=== PATIENT | female | born 1965 | race Caucasian/White ===

== ENCOUNTER 2016-09-07 12:38 | Observation (INO) ==
[2016-09-07 13:04] LABS: MANUAL DIFF NEEDED? NO
[2016-09-07] MEDS ORDERED: LOPRESSOR IV ONE (13:09)
[2016-09-07 13:11] LABS: BASO% 0.2 % (0.0-0.8); EOS# 0.12 X1000 (0.0-0.7); EOS% 1.4 % (0.0-10.0); HEMATOCRIT 41.5 % (37.0-47.0); HEMOGLOBIN 13.7 g/dL (12.0-16.0); IMM GRAN# 0.01 X1000 (0.0-0.04); IMM GRAN% 0.1 % (0.0-0.5); LYMPH# 2.07 X1000 (1.2-3.4); LYMPH% 24.6 % (20.5-51.1); MCH 31.5 PG (27-31); MCV 95.4 FL (81-99); MONO# 0.53 X1000 (0.11-0.59); MONO% 6.3 % (1.7-9.3); MPV 9.4 FL (7.4-10.4); NEUT% 67.4 % (42.2-75.2); PLT 353 X1000 (130-400); RBC 4.35 XMIL (4.2-5.4)
[2016-09-07 13:19] LABS: BE 3.2 mmoll (-3.0-3.0); BLOOD TYPE ARTERIAL; DRAW SITE L RADIAL; O2(CT) 16.8 mL/dL (15.0-23.0); PCO2(98.6) 42 mmHg (35-45); PO2(98.6) 77 mmHg (60-100); SAMPLE BLOOD; SAO2 96.6 % (95.0-100.0); THB 13.4 g/dL (11.5-17.4); pH(98.6) 7.43 (7.35-7.45)
[2016-09-07 13:21] LABS: INR 0.86 (0.86-1.15)
[2016-09-07 13:22] LABS: PTT PL 29.4 Seconds (22.6-43.9)
[2016-09-07 13:37] LABS: AGAP 13; ALBUMIN 4.3 g/dL (3.5-5.0); ALKALINE PHOSPHATASE 98 U/L (32-104); BUN 14 mg/dL (8-22); CALCIUM 9.7 mg/dL (8.8-10.2); CHLORIDE 98 mmol/L (98-107); CK PROFILE 37 U/L (24-173); COSMO 287; GOT 16 U/L (10-30); GPT 7 U/L (10-36); POTASSIUM 4.5 mmol/L (3.5-5.1); SODIUM 137 mmol/L (136-145); TCO2 26 mmol/L (25-35); TOTAL BILIRUBIN < 0.15 mg/dL (0.20-1.00); TOTAL PROTEIN 7.9 g/dL (6.3-8.3)
[2016-09-07 14:10] LABS: UR AMPHETAMINES QUAL NONE DETECTED (NONE DETECT); UR BARBITUATES QUAL NONE DETECTED (NONE DETECT); UR BENZODIAZEPIN QUAL NONE DETECTED (NONE DETECT); UR CANNABINOIDS QUAL PRESUMPTIVE POSITIVE (NONE DETECT); UR COCAINE QUAL NONE DETECTED (NONE DETECT); UR MDMA QUAL NONE DETECTED (NONE DETECT); UR METHADONE QUAL NONE DETECTED (NONE DETECT); UR METHAMPHETAMINE QUAL NONE DETECTED (NONE DETECT); UR OPIATES QUAL NONE DETECTED (NONE DETECT); UR OXYCODONE QUAL PRESUMPTIVE POSITIVE (NONE DETECT); UR PCP QUAL NONE DETECTED (NONE DETECT); UR TCA QUAL NONE DETECTED (NONE DETECT)
[2016-09-07 14:15] LABS: BILIRUBIN URINE NEGATIVE (NEGATIVE); BLOOD URINE NEGATIVE (NEGATIVE); CLARITY CLEAR (CLEAR); COLOR YELLOW; LEUKOCYTES URINE TRACE (NEGATIVE); NITRITE URINE NEGATIVE (NEGATIVE); PH URINE 6.5; PROTEIN URINE TRACE mg/dL (NEGATIVE); SP GRAVITY URINE 1.015; UROBILINOGEN URINE NORMAL
[2016-09-07 14:16] LABS: URINE CULTURE PL NEEDED? YES; URINE EPITHELIAL CELLS >10 /HPF (<10); URINE RBC <10 /HPF (<10); URINE SOURCE CLEAN CATCH
[2016-09-07] MEDS ORDERED: ROCEPHIN 1 GM/NS 1 GM/50 ML IVPB IV ONE (14:18)
--- NOTE | 2016-09-07 15:11 | EKG Report ---
Test Performed on : 09/07/2016 12:57:50 PM Test Reason : AMS Blood Pressure : / mmHG Vent. Rate : 080 BPM Atrial Rate : 080 BPM P-R Int : 134 ms QRS Dur : 088 ms QT Int : 404 ms P-R-T Axes : 067 034 058 degrees QTc Int : 465 ms Normal sinus rhythm. Normal ECG When compared with ECG of 25-SEP-2014 16:06, T wave inversion no longer evident in Anterior leads Unconfirmed Result
[2016-09-07 15:25] LABS: MODALITY ROOM AIR
[2016-09-07 15:26] LABS: ALLEN TEST YES
--- NOTE | 2016-09-07 16:04 | Diag Imaging Result Document ---
PROCEDURE NAME: CHEST-1 VIEW - 09/07/2016 CHEST, SINGLE VIEW COMPARISON: 09/25/14. FINDINGS: The lungs are well expanded. The heart is not enlarged. The vessels are not distended. No pneumonia. No pleural effusions identified. IMPRESSION: Negative chest.
--- NOTE | 2016-09-07 16:22 | Diag Imaging Result Document ---
PROCEDURE NAME: HEAD W/O CONTRAST - 09/07/2016 CT BRAIN WITHOUT CONTRAST. DOSE REDUCTION PROTOCOL. COMPARISON: 06/06/2016. FINDINGS: No parenchymal hemorrhage. No epidural or subdural hematoma. No subarachnoid hemorrhage. No mass identified on this noncontrasted exam. No hydrocephalus. No sinus opacification. IMPRESSION: No hemorrhage. Negative brain CT without contrast. A preliminary report was given at 1:39 p.m..
--- NOTE | 2016-09-07 17:11 | Diag Imaging Result Document ---
PROCEDURE NAME: NECK W/CONTRAST - 09/07/2016 CT NECK WITH INTRAVENOUS CONTRAST: FINDINGS: Dose reduction protocol. No sinus opacification. No air-fluid levels. The parotid glands are symmetrical and the submandibular glands are symmetrical. No precervical soft tissue swelling. There are degenerative changes in the mid and lower cervical spine. Normal larynx and thyroid. There are small lymph nodes scattered in the neck. No mass or abscess. The lung apices are clear. The airway is distended. The epiglottis is not enlarged. IMPRESSION: No mass or abscess. A preliminary report was given at 2:53 PM.
[2016-09-07] MEDS ORDERED: HUMALOG MIX ONE (17:37)
[2016-09-07] MEDS: PRINIVIL PO SCH (18:38)
[2016-09-07] MEDS: NEURONTIN PO SCH (20:20)
[2016-09-07] MEDS: HUMULIN R (PARKWAY) SUBQ SCH (20:25)
[2016-09-07] MEDS ORDERED: ZOLOFT PO SCH (21:00)
[2016-09-07] MEDS ORDERED: AMBIEN PO PRN (21:42)
[2016-09-07] MEDS: NORCO-5 PO PRN (22:01)
[2016-09-08] MEDS: NORCO-5 PO PRN (03:35)
[2016-09-08] MEDS: HUMULIN R (PARKWAY) SUBQ SCH ×2 (06:13→11:54)
[2016-09-08 06:45] LABS: HEMOGLOBIN A1C 7.3 % (4.8-6.0)
[2016-09-08 06:50] LABS: HEMATOCRIT 37.8 % (37.0-47.0); HEMOGLOBIN 12.1 g/dL (12.0-16.0); MCH 30.7 PG (27-31); MCV 95.9 FL (81-99); MPV 9.5 FL (7.4-10.4); RBC 3.94 XMIL (4.2-5.4)
[2016-09-08] MEDS ORDERED: INSULIN LISPRO PROTAMIN SQ SCH (07:00)
[2016-09-08] MEDS ORDERED: PRILOSEC PO SCH (07:00)
[2016-09-08] MEDS ORDERED: LISPRO SQ SCH (07:00)
[2016-09-08 07:37] LABS: CALCIUM 9.3 mg/dL (8.8-10.2); POTASSIUM 4.3 mmol/L (3.5-5.1)
[2016-09-08] MEDS ORDERED: GLUCOPHAGE PO SCH (08:00)
[2016-09-08] MEDS ORDERED: JANUVIA PO SCH (08:00)
[2016-09-08] MEDS: NEURONTIN PO SCH (08:41)
[2016-09-08] MEDS: PRINIVIL PO SCH (08:42)
[2016-09-08 08:52] VITALS: BP 140/72
[2016-09-08] MEDS ORDERED: SYNTHROID PO SCH (09:00)
[2016-09-08] MEDS ORDERED: LANTUS INSULIN (PARKWAY) SUBQ SCH (09:00)
[2016-09-08] MEDS ORDERED: SEROQUEL PO SCH (09:00)
--- NOTE | 2016-09-08 11:15 | Diag Imaging Result Document ---
PROCEDURE NAME: MRI BRAIN W W/O CONTRAST - 09/08/2016 MRI BRAIN WITHOUT AND WITH CONTRAST: TECHNIQUE: Images are obtained prior to and following Omniscan administration. Exam is compared with a without-contrast MRI brain of 01/22/2014. FINDINGS: There is no evidence of hemorrhage, mass effect, midline shift, or hydrocephalus. There is mild ventricular asymmetry which is stable and compatible with normal variation. There are no substantial signal abnormalities identified. The diffusion-weighted images show no areas of restricted diffusion (no evidence of acute infarct). There is no abnormal enhancement seen. IMPRESSION: Negative exam. There are no substantial signal abnormalities or abnormal enhancement seen.
--- NOTE | 2016-09-08 21:18 | DISCHARGE SUMMARY ---
ADMISSION DATE: 09/07/2016 DISCHARGE DATE: 09/08/2016 DIAGNOSES: 1. Altered mental status in a patient with 2. Diabetes mellitus, uncontrolled. 3. Hypothyroid. 4. Bipolar disorder. 5. Tobacco use and abuse. DIAGNOSTICS: 09/07/2016 chest x-ray revealed a negative chest. Lungs are well expanded. Heart is not enlarged. Vessels are not distended. No pneumonia. 09/07/2016 CT of the head revealed no hemorrhage. Negative brain CT without contrast. 09/07/2016 CT of the neck revealed no mass or abscess. Parathyroid glands are symmetrical. Submandibular glands are symmetrical. No precervical soft tissue swelling. Normal larynx and thyroid. No mass or abscess. 09/08/2016 brain MRI revealed a negative examination. There are no substantial signal abnormalities or abnormal enhancement seen. HOSPITAL COURSE: Ms. Huizar presented to the emergency room from her primary care physician's office for altered mental status and uncontrolled diabetes mellitus having blood sugars over the 300s. Report from her PCP, Dr. Jay Martinez was that the patient showed up at his office with a friend. She was slow to answer questions, at times having pauses for quite some time. The friend gave a report of the patient having a questionable pituitary tumor diagnosed in the past. Therefore, the patient was sent per EMS to the emergency room for further evaluation and treatment. On arrival to the emergency room the patient was awake, alert, cooperative. She was slow to respond to some questions but this was not consistent. She had no complaints. Blood sugars were noted to be 300-334. She was noted to have less than 10 microscopic red blood cells, 10-20 microscopic white blood cells, and 3+ bacteria so urine was sent for culture which revealed no growth. She was given Rocephin in the emergency room prophylactically while cultures were pending. She did not complain of any urinary symptoms. She had no white count. She was afebrile. CT scan of the head and neck, and MRI of the brain were all found to have no acute processes. Blood sugars once she arrived in the emergency room ranged between 60 and 150. She had no complaints, no altered mental status. She was very cooperative. She had no difficulty carrying on conversations or answering questions with a nonfocal neurologic examination. Of note, urine drug screen was performed which was positive for oxycodone as well as cannabinoids. She did state that she smoked marijuana at intervals. DISCHARGE PHYSICAL EXAMINATION: Cardiovascular: Regular rate and rhythm. S1 and S2 are appreciated. Pulmonary: Breath sounds clear with no increased work of breathing noted. Gastrointestinal: Abdomen was soft, nontender, nondistended with bowel sounds in all 4 quadrants. Extremities: No clubbing, cyanosis, or edema. Calves nontender. Pulses palpable x4. Discharge Vital Signs: Blood pressure 140/72 with a heart rate of 68, respirations 18, temperature 97.8 degrees with room air saturation of 96-99%. DISCHARGE MEDICATIONS: She will continue her home medications of Adderall 20 mg b.i.d., Janumet b.i.d., Zoloft 200 at bedtime, Seroquel 200 daily, Zofran 4 mg q.6 hours p.r.n., omeprazole 40 daily, levothyroxine 300 mcg daily, Humalog mix 50-50 Quick Pen 5 units before meals, Lantus 16 units q. a.m., gabapentin 300 mg b.i.d. DISCHARGE ACTIVITY: As tolerated. DISCHARGE DIET: Diabetic. FOLLOWUP: She is to follow up with her primary care physician in the next 1-2 weeks, her buffer copper as scheduled, her psychiatric care provider as scheduled. DISCHARGE INSTRUCTIONS: The patient did ask for narcotics on discharge. I did discuss with the patient that she had complained of no pain during the hospitalization and given her episode of altered mental status she would not be given anything that would further alter or askew any neurological examination per the hospitalist service. I did recommend that she follow up with her primary care provider and her psychiatric provider for any further medications. DISPOSITION: She is being discharged home in stable condition with family members. TIME SPENT: This is a greater than 30 minute discharge. Dictated by PILY Cervantes for Rigoberto Fregoso MD cc: PILY Cervantes MD
--- NOTE | 2016-09-09 07:08 | Extremity Venous Study ---
PROCEDURE NAME: Carotid Ultrasound - 09/08/2016 CAROTID DOPPLER EVALUATION: INDICATION: TIA. FINDINGS: Right: There is irregular plaque within the right internal carotid artery. There are no velocity elevation to suggest hemodynamically significant stenosis. Maximal velocity is 108/36 cm/sec. Right ICA/CCA ratio is 1.42. Left: There is dense irregular plaque involving the carotid bifurcation and proximal internal and external carotid arteries. There is velocity elevation within the proximal left internal carotid artery to 224/35 cm/sec. Left mid internal carotid artery 156/54 cm/sec. Left ICA/CCA ratio is 2.54. Findings are consistent with a stenosis in the 50% to 69% range. Bilateral vertebral flow is antegrade. Findings on the left are new, when compared with the previous study, by report. IMPRESSION: Findings consistent with a stenosis in the 50% to 69% range, left internal carotid, via velocity criteria.
--- NOTE | 2016-09-21 15:43 | PROVIDER DOCUMENTATION ---
This chart was entered by Nam Card Scribe, acting as scribe for Katerina White MD. HPI-General Adult - General Chief Complaint: Altered Mental Status Stated Complaint: ams,uncontrolled dm Time Seen by Provider: 09/07/16 12:50 Source: patient, family (friend) Allergies/Adverse Reactions: Patient Allergies Allergy/AdvReac Type Severity Reaction Status Date / Time No Known Allergies Allergy Verified 09/07/16 12:41 Home Medications: Home Medication List Medication Instructions Recorded Confirmed Last Taken Type Quetiapine Fumarate [Seroquel] 200 mg PO DAILY 06/30/13 09/07/16 09/07/16 History Levothyroxine [Synthroid] 300 microgm PO DAILY 09/02/13 09/07/16 09/07/16 History Omeprazole 40 mg PO DAILY 09/02/13 09/07/16 09/07/16 History Sitagliptin Phos/Metformin HCl 1 each PO BID #0 tablet 01/22/14 09/07/16 Rx [Janumet 50-1,000 mg Tablet] Sertraline HCl [Zoloft] 200 mg PO HS 01/10/15 09/07/16 06/06/16 History Gabapentin 300 mg PO BID 06/25/15 09/07/16 09/07/16 History Insulin Glargine [Lantus] 16 unit SUBQ QAM 06/06/16 09/07/16 09/07/16 History Insulin Lispro Protamin/Lispro 5 unit SQ AC 06/06/16 09/07/16 09/07/16 History [Humalog Mix 50-50 Kwikpen] Ondansetron [Zofran] 4 mg PO Q6H PRN PRN #20 tablet 06/06/16 09/07/16 09/07/16 Rx Amphetamine Salts [Adderall] 20 mg PO BID 09/07/16 09/07/16 09/06/16 History - History of Present Illness -Gen Adult Nature of Presenting Problems: 50 y/o F presents to the ED via EMS from Dr Martinez's office. EMS called due to AMS and uncontrolled DM. sugar per EMS was 300s. similar episodes in the past. friend at bedside states when she spoke to patient on the phone this morning she was altered and had no memory recall of the events from the weekend. no hx of HTN. denies any pain. no other voiced complains. Location of Pain/Injury: reports: none Quality of Pain: reports: none Severity: reports: moderate Onset/Duration: reports: just prior to arrival Timing: reports: still present Modifying Factors: improves with: nothing Review of Systems - Adult - REVIEW OF SYSTEMS - ADULT Constitutional: denies: chills, fever Eyes: reports: no symptoms reported Ears, Nose, Mouth & Throat: reports: no symptoms reported Cardiovascular: denies: chest pain, palpitations Respiratory: denies: shortness of breath, wheezing Gastrointestinal: denies: abdominal pain, diarrhea, nausea, vomiting Genitourinary: denies: dysuria, frequency Musculoskeletal: denies: joint pain, muscle aches Integumentary: denies: itching, rash Neurological: reports: other (altered). denies: dizziness/vertigo, headache/ migraines Psychiatric: reports: no symptoms reported Endocrine: reports: no symptoms reported Hematologic/Lymphatic: reports: no symptoms reported Allergic/Immunologic: reports: no symptoms reported All Other Systems: Reviewed and Negative Past History - Adult - PAST MEDICAL HISTORY-ADULT Review of Records: reports: Nursing Assessment Review, Medications Reviewed Major Childhood Illnesses: reports: denies history Cardiovascular: reports: HTN, hyperlipidemia Respiratory: reports: denies history Gastrointestinal: reports: denies history Obstetrical/Gynecological: reports: denies history Genitourinary: reports: denies history Musculoskeletal: reports: chronic pain Neurological: reports: denies history Psychiatric: reports: depression Endocrine/Immune: reports: Diabetes, thyroid disorder Other Conditions: reports: denies history - PRIOR SURGERIES/PROCEDURES Surgical/Procedure History: reports: hysterectomy, tonsillectomy, orthopedic ( extremity) - PRIOR HOSPITALIZATIONS Prior Hospitalizations: reports: none - IMMUNIZATION STATUS Childhood Immunizations: See Nurse Assessment Flu Vaccine: See Nurse Assessment - FAMILY HISTORY Family History: reviewed, not pertinent Physical Exam-General - PHYSICAL EXAM-ADULT Initial Vital Signs Reviewed: Yes - CONSTITUTIONAL General Appearance: alert, no apparent distress, slow to respond - EYES Eyes: PERRL/EOMI, pink conjunctivae - HEAD, EARS, NOSE, MOUTH & THROAT HENMT: moist mucous membranes, normal ENT inspection - NECK Neck: full range of motion, normal inspection - RESPIRATORY Respiratory: lungs clear, normal breath sounds, no respiratory distress, no accessory muscle use - CARDIOVASCULAR Cardiovascular: normal peripheral pulses, regular rate, rhythm - GASTROINTESTINAL (ABDOMEN) Abdominal Exam: normal bowel sounds, non tender, soft - MUSCULOSKELETAL Extremity: normal range of motion, normal inspection, normal capillary refill - SKIN Integumentary: normal color, warm/dry - PSYCHIATRIC Psych/Mental Status: normal mood/affect, oriented x 3 Progress - PLAN OF CARE/RESULTS Progress/Plan/Lab Results: Vital Signs - 8 hr 09/07/16 12:38 Pulse Rate 69 Respiratory Rate 21 Blood Pressure 190/97 O2 Sat by Pulse Oximetry 93 L Laboratory Results - last 24 hr 09/07/16 12:55 WBC 8.41 RBC 4.35 Hgb 13.7 Hct 41.5 MCV 95.4 MCH 31.5 H MCHC 33.0 RDW Std Deviation 14.1 Plt Count 353 MPV 9.4 Immature Gran % (Auto) 0.1 Neut % (Auto) 67.4 Lymph % (Auto) 24.6 [place] % (Auto) 6.3 Eos % (Auto) 1.4 Baso % (Auto) 0.2 Immature Gran # (Auto) 0.01 Neut # (Auto) 5.66 Lymph # (Auto) 2.07 [place] # (Auto) 0.53 Eos # (Auto) 0.12 Baso # (Auto) 0.02 Orders Category Date Time Status Cardiac Monitoring DIRECTED Care 09/07/16 12:51 Active Finger Stick Blood Sugar (ED) DIRECTED Care 09/07/16 12:51 Active Misc. NRSG Communication Order DIRECTED Care 09/07/16 12:51 Active Oxygen Therapy- ED Nursing DIRECTED Care 09/07/16 12:51 Active Saline Loc NOW Care 09/07/16 12:51 Active CHEST-1 VIEW [RAD] Stat Exams 09/07/16 12:51 Ordered HEAD W/O CONTRAST [CT] Stat Exams 09/07/16 12:52 Ordered ABG [RESP] Routine Lab 09/07/16 12:51 Ordered ALCOHOL BLOOD Stat Lab 09/07/16 12:55 Received CBC WITH ELECTRONIC DIFF [HEME] Stat Lab 09/07/16 12:55 Completed CK PROFILE [SP CHEM] Stat Lab 09/07/16 12:55 Received COMPREHENSIVE METABOLIC PANEL [CHEM] Stat Lab 09/07/16 12:55 Received LACTATE, PLASMA [CHEM] Stat Lab 09/07/16 12:51 Ordered PRO B-NATRIURETIC PEPTIDE Stat Lab 09/07/16 12:[address]IME WITH INR PL [COAG] Stat Lab 09/07/16 12:[address] [COAG] Stat Lab 09/07/16 12:55 Received TROPONIN T Stat Lab 09/07/16 12:[address] W/POSS RFLX CULT [URINALYSIS] Stat Lab 09/07/16 12:51 Uncollected URINE DRUG SCREEN PL Stat Lab 09/07/16 12:51 Uncollected Metoprolol [Lopressor] Med 09/07/16 13:09 Discontinued 5 mg IV NOW ONE Pulse Oximetry Stat Oth 09/07/16 12:51 Active EKG [EKG] Stat Ther 09/07/16 12:51 Ordered Result Diagrams: 09/07/16 12:55 09/07/16 12:55 - REASSESSMENT Reassessment #1 Time Reassessed: 15:52 Status: improving (Pt is feeling much better and very happy. Refused to be admitted and ready to go home. reports she has stares/absent seizure activities since a long time ago and her used to it already. She believes the mild UTI or UTI kicking in is the cause of her issues today. Pt's last BP check was several months ago and her BP was normalized to 160/90s curently. Pt will follow up with Dr. Martinez for an out patient work up tomorrow.) - EKG 1 Time of EKG reading by physician:: 12:58 EKG Read and Signed by:: Katerina White EKG Interpretation (*Must complete 3 of following elements*): Normal Rate: 80 Rhythm: normal sinus rhythm [place]: normal QRS: normal GA Interval: normal ST Wave: normal - CONSULTS/PCP/HOSPITALIST Notification Time Discussed: 16:01 Reason/Comments: Admit to Dr. Smith for ? TIA/elevated BP Consult Disposition: Admit Departure - Departure Time of Disposition Decision: 15:55 DIAGNOSIS: Absence seizure UTI (urinary tract infection) Qualifiers: Urinary tract infection type: acute cystitis Hematuria presence: without hematuria Qualified Code(s): N30.00 - Acute cystitis without hematuria Hypertension Qualifiers: Hypertension type: essential hypertension Qualified Code(s): I10 - Essential ( primary) hypertension Disposition: HOME 01 Certified Medical Emergency: Emergent Condition: Stable Referrals and Follow-Ups: Jay Martinez MD [Primary Care Provider] - - Critical Care Note This patient required my direct & personal management of CC.: No This chart was documented by the indicated scribe, (Nam Card, Scribe) and accurately reflects the services I performed and decisions made by me, Katerina White MD, as attested by the provider's signature.
--- NOTE | 2016-10-09 12:54 | HISTORY AND PHYSICAL ---
CHIEF COMPLAINT: Altered mental status. HISTORY OF PRESENT ILLNESS: This is a 51-year-old female who presented to the ER via EMS from her primary care physician's office. Reportedly, she had a blood sugar that was over 300, and she was altered and unable to answer questions at the office. On arrival to the emergency room, she was awake and alert but she was slow to respond to questions. She does have a history of depression and bipolar disorder as well as reported absent seizures. CT of the head was negative. CT of the neck revealed no mass or abscess per Radiology read. In the emergency room, according to the chart, the patient remained awake and alert throughout the ER span. PAST MEDICAL HISTORY: Bipolar disorder, hypothyroid, diabetes mellitus uncontrolled, altered mental status. PAST SURGICAL HISTORY: Hysterectomy, tonsillectomy, and right Achilles tendon repair. SOCIAL HISTORY: She smokes a pack a day. She denies alcohol or illicit drug use. ALLERGIES: No known drug allergies. HOME MEDICATIONS: A list will be obtained. REVIEW OF SYSTEMS: A 14-point review of systems is discussed with the patient with pertinent positives being altered mental status. She denied chest pain, palpitations, dizziness, syncope, cough, fever chills, PND, orthopnea, night sweats, recent weight loss or weight gain, any hematuria, dysuria, frequency urgency. PHYSICAL EXAMINATION: GENERAL: This is a 51-year-old female who is sitting up in the bed in no distress. VITAL SIGNS: Blood pressure is 160/90 with a heart rate of 69, respirations are 18, temperature is 98.1 degrees oral with room air saturations 98%-100%. CARDIOVASCULAR: Regular rate and rhythm. S1, S2 appreciated. PULMONARY: Breath sounds are clear. No increased work of breathing noted. GASTROINTESTINAL: Abdomen soft, nontender, nondistended. Bowel sounds in all 4 quadrants. MUSCULOSKELETAL: Good range of motion of joints. SKIN: Warm and dry with no rashes or lesions noted. EXTREMITIES: No clubbing, cyanosis, or edema. Calves are nontender. Pulses are palpable x4. NEUROLOGIC: She is alert and oriented x3 with cranial nerves 2-12 grossly intact. DIAGNOSTICS: Labs: WBC is 8.4 with hemoglobin 13.7, hematocrit 41.5, and platelets of 353,000. Sodium is 137, potassium 4.5. BUN 14, creatinine 1 with a glucose of 150 to 330. Troponin was negative. Her urine drug screen is positive for oxycodone and cannabinoids. Urinalysis reveals 10-20 microscopic white blood cells and 3+ bacteria with 2+ glucose. CT scan, as stated above. Urine culture is pending. ASSESSMENT: 1. Altered mental status, resolved. 2. Diabetes mellitus, uncontrolled. 3. Hypothyroid. 4. Bipolar disorder. 5. Tobacco use and abuse. 6. Questionable urinary tract infection. PLAN: The patient will be admitted to the hospital, placed on telemetry. We will monitor neuro checks. Fingerstick blood sugars with pattern blood glucose. We will identify her home medications and continue as appropriate. She was given a gram of Rocephin in the emergency room. We will monitor her urine culture. Once results return, if needed, we will start further antibiotic coverage. We will obtain an MRI of the brain with and without contrast, and we will trend labs. Further treatments pending hospital course. Dictated by PILY Cervantes for Dennys Smith MD cc: PILY Cervantes MD pt examined, agree with above AP[facility]OT MTDD
== END 2016-09-08 13:00 | disposition home or self-care (01) ==
LOC: P.MEDSURG 12:38 → P.ED 12:38 → SUATTDRO 16:42
PROVIDERS: ATTEND Family Medicine

== ENCOUNTER 2018-08-08 16:51 | Inpatient (IN) ==
[2018-08-08] MEDS ORDERED: HUMULIN R SUBQ ONE (18:44)
[2018-08-08] MEDS ORDERED: NS 1,000 ML IV ONE ×3 (18:45→19:06)
[2018-08-08 18:48] LABS: ALLEN TEST YES; BE -20.5 mmoll (-3.0-3.0); BLOOD TYPE ARTERIAL; HCO3-(ACT) 8.9 mmoll (20.0-26.0); METHB 1.1 % (0.0-1.5); O2(CT) 20.9 mL/dL (15.0-23.0); O2HB 95.2 % (95.0-99.0); PCO2(98.6) 20 mmHg (35-45); PO2(98.6) 93 mmHg (60-100); SAMPLE BLOOD; SAO2 97.6 % (95.0-100.0); THB 15.6 g/dL (11.5-17.4)
[2018-08-08 18:49] LABS: MODALITY ROOM AIR
[2018-08-08 18:52] LABS: pH(98.6) 7.13 (7.35-7.45)
[2018-08-08 18:55] LABS: INR 0.93; PROTIME 13.2 Seconds (11.0-16.0)
[2018-08-08 19:14] LABS: BASO# 0.06 X1000 (0.0-0.2); BASO% 0.3 % (0.0-0.8); EOS# 0.01 X1000 (0.0-0.7); EOS% 0.1 % (0.0-10.0); HEMATOCRIT 46.5 % (37.0-47.0); HEMOGLOBIN 15.4 g/dL (12.0-16.0); IMM GRAN# 0.05 X1000 (0.0-0.04); IMM GRAN% 0.3 % (0.0-0.5); LYMPH# 1.72 X1000 (1.2-3.4); LYMPH% 8.9 % (20.5-51.1); MCH 30.7 PG (27-31); MCHC 33.1 g/dL (33-37); MCV 92.8 FL (81-99); MONO# 0.65 X1000 (0.11-0.59); MONO% 3.4 % (1.7-9.3); MPV 10.9 FL (7.4-10.4); NEUT# 16.85 X1000 (1.4-6.5); PLT 364 X1000 (130-400); RBC 5.01 XMIL (4.2-5.4); RDW 12.3 % (11.5-14.5); WBC 19.34 X1000 (4.8-10.8)
[2018-08-08] MEDS ORDERED: ROCEPHIN 1 GM in NS 50 ML IV ONE (19:16)
[2018-08-08 19:17] LABS: LARGE PLATELETS OCCASIONAL; LYMPHS 5 % (21-51); MONO 1 % (1-9); SEGS 94 % (42-75)
--- NOTE | 2018-08-08 19:17 | Diag Imaging Result Doc PS360 ---
EXAM: CHEST-1 VIEW HISTORY: sepsis TECHNIQUE: Portable chest single view COMPARISON: 11/23/2016 FINDINGS: The lungs are well expanded. The heart is not enlarged. The vessels are not distended. There are no infiltrates. No effusion identified. IMPRESSION: No pneumonia Electronically signed by Jordan Juarez 08/08/2018 7:14 PM
[2018-08-08 19:26] LABS: ALB/GLOB RATIO 1.4; ALBUMIN 4.9 g/dL (3.5-5.0); CALCIUM 10.4 mg/dL (8.8-10.2); CREATININE 1.6 mg/dL (0.5-0.9); POTASSIUM 5.4 mmol/L (3.5-5.1); TOTAL BILIRUBIN 0.18 mg/dL (0.20-1.00); TOTAL PROTEIN 8.3 g/dL (6.3-8.3)
[2018-08-08 19:39] LABS: MAGNESIUM 2.3 mg/dL (1.5-2.7); PHOSPHORUS 6.8 mg/dL (2.7-4.5)
[2018-08-08] MEDS ORDERED: TYLENOL PR PRN (19:45)
[2018-08-08] MEDS ORDERED: D50W SYRINGE IV PRN (19:45)
[2018-08-08] MEDS ORDERED: SODIUM PHOSPHATE 30 MMOL in D5W 250 ML IV PRN (19:45)
[2018-08-08] MEDS ORDERED: D5 NS + KCL 20 MEQ 1,000 ML IV SCH (19:45)
[2018-08-08] MEDS ORDERED: MAGNESIUM SULFATE 2 GM/S.W.I. 2 GM/50 ML IVPB IV PRN (19:45)
[2018-08-08] MEDS ORDERED: HUMULIN R IV ONE (19:45)
[2018-08-08 19:46] LABS: URINE SOURCE CLEAN CATCH
[2018-08-08 19:51] LABS: BILIRUBIN URINE NEGATIVE (NEGATIVE); BLOOD URINE TRACE (NEGATIVE); COLOR STRAW; GLUCOSE URINE >1000 mg/dL (NEGATIVE); KETONE URINE 100 mg/dL (NEGATIVE); LEUKOCYTES URINE NEGATIVE (NEGATIVE); NITRITE URINE NEGATIVE (NEGATIVE); PROTEIN URINE TRACE mg/dL (NEGATIVE); SP GRAVITY URINE 1.023; TURBIDITY URINE CLEAR (CLEAR); UR EPITHELIAL CELLS <10 /HPF (<10); URINE BACTERIA NEGATIVE /HPF; URINE RBC <10 /HPF (<10); URINE WBC <10 /HPF (<10); UROBILINOGEN URINE NORMAL (NORMAL)
[2018-08-08] MEDS: HUMULIN R 100 UNIT in NS 99 ML IV SCH (20:17)
[2018-08-08] MEDS: 1/2 NS 1,000 ML IV SCH (21:30)
--- NOTE | 2018-08-08 21:46 | HISTORY AND PHYSICAL ---
PRIMARY CARE PHYSICIAN: Unknown CHIEF COMPLAINT: Nausea, vomiting, abdominal pain, not feeling well for several days. HISTORY OF PRESENTING ILLNESS: A 52-year-old female with a history of diabetes mellitus type 2 on insulin, ulcerative colitis, GERD, hypothyroidism on bipolar disorder who presented to emergency department with several days history of having nausea, vomiting, abdominal discomfort. She states that she was not able to keep anything down. She was feeling sick, and subsequently she had come to the emergency department. In the ED, she was evaluated. She had laboratories drawn that was consistent with diabetic ketoacidosis. Subsequently, she will require admission for further management. At the time of my examination, the patient had denied any headache, fever, chills, chest pain, shortness of breath, hemoptysis, melena or weight changes but complained of nausea, vomiting and not feeling well. PAST MEDICAL HISTORY: Includes diabetes mellitus type 2 on insulin, ulcerative colitis, GERD, hypothyroidism, bipolar disorder. PAST SURGICAL HISTORY: Hysterectomy. ALLERGIES: No known drug allergies. CURRENT MEDICATIONS: Include Adderall 20 mg p.o. b.i.d., gabapentin 300 mg p.o. b.i.d., Lantus 10 units subcutaneous q.a.m., Humalog 50/50 10 units with meals, levothyroxine 300 mcg p.o. daily, omeprazole 40 mg p.o. daily, Seroquel 200 mg p.o. daily, sertraline 200 mg p.o. at bedtime, Janumet mg p.o. b.i.d. SOCIAL HISTORY: She smokes a pack for the past 4 years. She denies any history of alcohol or illicit drug use. FAMILY HISTORY: No history of coronary disease. REVIEW OF SYSTEMS: Fourteen-point review of systems as listed in HPI. Other systems negative. PHYSICAL EXAMINATION: GENERAL: Cooperative, friendly female. She is resting comfortably now. VITAL SIGNS: Temperature 96 degrees, pulse 97, respirations 20, blood pressure 159/87. HEENT: Atraumatic, normocephalic. Extraocular movements intact. PERRLA. NECK: No masses. CHEST: Clear to auscultation. CARDIOVASCULAR: Regular rate and rhythm. ABDOMEN: Soft. Positive bowel sounds. EXTREMITIES: No edema. NEUROLOGIC: She is awake, alert, oriented x2. GENITOURINARY: No bladder distention. SKIN: Warm. LABORATORIES AND STUDIES: pH of 7.13, pCO2 20, pO2 93, WBCs 19.34, hemoglobin 15.4, hematocrit 46.5, platelets 364,000. Sodium 129, potassium 5.4, chloride 80. CO2 is 11. BUN is 30. Creatinine is 1.6, glucose 719. ASSESSMENT: A 52-year-old female with a history of diabetes mellitus type 2, gastrointestinal reflux disease, hypothyroidism, bipolar disorder who had presented to emergency department with several days history of worsening nausea, vomiting, and abdominal discomfort. She was evaluated in the emergency department with suspected: 1. Diabetic ketoacidosis. 2. Leukocytosis. 3. Hypertension. 4. Bipolar disorder. 5. Tobacco abuse. PLAN: 1. We will admit patient to [facility]. 2. Continue patient on insulin drip. 3. Continue to monitor white count and continue with IV fluids. 4. We will monitor blood pressure closely and start antihypertensive agents as needed. 5. Restart her home medications. 6. I counseled patient on smoking cessation. 7. Put patient on DVT prophylaxis, SCDs. 8. We will continue to follow and reassess and make further recommendations based on patient's clinical course. cc: Óscar Skaggs MD MTDD
[2018-08-08 23:43] LABS: ALLEN TEST YES; BE -9.9 mmoll (-3.0-3.0); BLOOD TYPE ARTERIAL; HCO3-(ACT) 17.1 mmoll (20.0-26.0); O2(CT) 18.8 mL/dL (15.0-23.0); O2HB 93.7 % (95.0-99.0); PCO2(98.6) 25 mmHg (35-45); PO2(98.6) 68 mmHg (60-100); SAMPLE BLOOD; SAO2 95.9 % (95.0-100.0); THB 14.3 g/dL (11.5-17.4); pH(98.6) 7.35 (7.35-7.45)
[2018-08-08 23:44] LABS: MODALITY ROOM AIR
--- NOTE | 2018-08-09 00:47 | PROVIDER DOCUMENTATION ---
This chart was entered by Lilia Khan Scribe, acting as scribe for Lopez Leigh MD. HPI-Abdominal Pain/GI Problem - General Chief Complaint: Nausea/Vomiting Stated Complaint: VOMITING Time Seen by Provider: 08/08/18 17:32 Source: patient, family Allergies/Adverse Reactions: Patient Allergies Allergy/AdvReac Type Severity Reaction Status Date / Time No Known Allergies Allergy Verified 11/23/16 17:05 Home Medications: Home Medication List Medication Instructions Recorded Confirmed Last Taken Type Quetiapine Fumarate [Seroquel] 200 mg PO DAILY 06/30/13 09/07/16 11/23/16 08:00 History Levothyroxine [Synthroid] 300 microgm PO DAILY 09/02/13 09/07/16 11/23/16 08:00 History Omeprazole 40 mg PO DAILY 09/02/13 09/07/16 11/23/16 07:00 History Sitagliptin Phos/Metformin HCl 1 each PO BID #0 tablet 01/22/14 09/07/16 11/23/16 08:00 Rx [Janumet 50-1,000 mg Tablet] Sertraline HCl [Zoloft] 200 mg PO HS 01/10/15 09/07/16 11/22/16 20:00 History Gabapentin 300 mg PO BID 06/25/15 09/07/16 11/23/16 08:00 History Insulin Glargine [Lantus] 10 unit SUBQ QAM 06/06/16 09/07/16 09/07/16 History Insulin Lispro Protamin/Lispro 10 unit SQ AC 06/06/16 09/07/16 11/23/16 12:00 History [Humalog Mix 50-50 Kwikpen] Amphetamine Salts [Adderall] 20 mg PO BID 09/07/16 09/07/16 11/23/16 08:00 History Nitrofurantoin Monohyd/M-Cryst 100 mg PO BID #20 capsule 11/23/16 Unknown Rx [Macrobid 100 mg Capsule] Ondansetron Odt [Zofran 8Mg Odt] 8 mg PO Q8H PRN PRN #10 tablet 11/23/16 Unknown Rx - History of Present Illness-ABD Nature of Presenting Problems: 52 yof presents w/ w/co nausea and vomiting. pt was sick 1 month ago w/ cellulitis on buttocks at [facility], pt states there's still a knot on pt's back that is painful. pt has dm and is using insulin and is having trouble controlling blood sugar, it either gets too high in 500-600s or too low. pt states pt has no appetite in am and affects her sugar. pt and pt aren't good historians, all over the place. 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 pt denies diarrhea, headache, blurred vision. Review of Systems - Adult - REVIEW OF SYSTEMS - ADULT Constitutional: reports: see HPI. denies: chills, fever Eyes: reports: no symptoms reported. denies: blurred vision Ears, Nose, Mouth & Throat: reports: no symptoms reported Cardiovascular: reports: no symptoms reported Respiratory: reports: no symptoms reported Gastrointestinal: reports: see HPI, nausea, vomiting. denies: abdominal pain, hematemesis, constipation, diarrhea Genitourinary: reports: no symptoms reported Musculoskeletal: reports: no symptoms reported Integumentary: reports: no symptoms reported Neurological: reports: no symptoms reported Psychiatric: reports: no symptoms reported Endocrine: reports: see HPI, other (high blood sugar). denies: change in skin pigment, excessive sweating, increased thirst, polyuria Hematologic/Lymphatic: reports: no symptoms reported Allergic/Immunologic: reports: no symptoms reported All Other Systems: Reviewed and Negative Past History - Adult - PAST MEDICAL HISTORY-ADULT Review of Records: reports: Old Records Reviewed, Nursing Assessment Review, Medications Reviewed, Social history reviewed & non-contributory. Major Childhood Illnesses: reports: denies history Cardiovascular: reports: HTN, hyperlipidemia Respiratory: reports: asthma, COPD Gastrointestinal: reports: denies history Obstetrical/Gynecological: reports: denies history Genitourinary: reports: denies history Musculoskeletal: reports: chronic pain Neurological: reports: denies history Psychiatric: reports: bipolar, depression Endocrine/Immune: reports: Diabetes, thyroid disorder Diabetes Type: Type 2 Diabetes controlled by:: Insulin Dependent Other Conditions: reports: denies history - PRIOR SURGERIES/PROCEDURES Surgical/Procedure History: reports: hysterectomy, tonsillectomy, orthopedic (extremity) - PRIOR HOSPITALIZATIONS Prior Hospitalizations: reports: none - IMMUNIZATION STATUS Childhood Immunizations: See Nurse Assessment Flu Vaccine: See Nurse Assessment - FAMILY HISTORY Family History: reviewed, not pertinent - SOCIAL HISTORY Smoking: cigarettes, greater than 1 pack/day Provider spent 3-5 mins advising pt. on dangers of tobacco.: Discussed manners to quit use, and f/u contacts for add'l counseling. Substance Use: none/never Physical Exam-General - PHYSICAL EXAM-ADULT Initial Vital Signs Reviewed: Yes - CONSTITUTIONAL General Appearance: appears well, alert, no apparent distress - EYES Eyes: PERRL/EOMI - HEAD, EARS, NOSE, MOUTH & THROAT HENMT: normocephalic/atraumatic, moist mucous membranes, normal ENT inspection - NECK Neck: non-tender, full range of motion, supple, normal inspection - RESPIRATORY Respiratory: chest non-tender, lungs clear, normal breath sounds - CARDIOVASCULAR Cardiovascular: normal peripheral pulses, regular rate, rhythm - GASTROINTESTINAL (ABDOMEN) Abdominal Exam: normal bowel sounds, non tender, soft - LYMPHATIC Lymphatic: no adenopathy - MUSCULOSKELETAL Back Exam: normal inspection, no CVA tenderness, no vertebral tenderness Extremity: normal range of motion, non-tender, normal inspection Peripheral Pulses: radial (R): 2+, radial (L): 2+ - SKIN Integumentary: normal color, normal turgor, warm/dry - NEUROLOGIC Neurologic: financial services professional II-XII nml as tested, grossly normal, no motor/sensory deficits - PSYCHIATRIC Psych/Mental Status: normal mood/affect, normal thought content, normal thought process, oriented x 3 Progress - PLAN OF CARE/RESULTS Progress/Plan/Lab Results: Vital Signs - 8 hr 08/08/18 17:03 Temperature 96.0 F L Pulse Rate 97 H Respiratory Rate 20 Blood Pressure 159/87 O2 Sat by Pulse Oximetry 96 Laboratory Results - last 24 hr 08/08/18 08/08/18 08/08/18 17:10 17:50 18:38 PT 13.2 INR 0.93 PTT (Actin FS) 28.0 Specimen Type ARTERIAL Sample Site R RADIAL pH 7.13 L* pCO2 20 L pO2 93 HCO3 8.9 L Base Excess -20.5 L Oxyhemoglobin 95.2 ABG O2 Sat (Calculated) 20.9 ABG O2 Saturation 97.6 ABG Carboxyhemoglobin 1.50 ABG Methemoglobin 1.1 Gustavo Test YES A-a O2 Difference 32.0 Total Hemoglobin 15.6 Lactate 2.00 Blood Gas Modality ROOM AIR FiO2 % 21.0 POC Glucose 500 H D Orders Category Date Time Status Cardiac Monitoring DIRECTED Care 08/08/18 18:31 Active IV Insertion ORDERED Care 08/08/18 18:31 Completed Notify MD of + Sepsis Screen NOW Care 08/08/18 18:31 Active Notify Physician As Ordered Care 08/08/18 18:31 Active CHEST-1 VIEW [RAD] Stat Exams 08/08/18 18:31 Taken ABG [RESP] Routine Lab 08/08/18 18:38 Completed BLOOD CULTURE [BLDCUL] Stat Lab 08/08/18 17:50 Ordered CBC WITH DIFF [HEME] Stat Lab 08/08/18 17:50 Results CK PROFILE [SP CHEM] Stat Lab 08/08/18 17:50 Received COMPREHENSIVE METABOLIC PANEL [CHEM] Stat Lab 08/08/18 17:50 Received LACTATE, PLASMA [CHEM] Lab 08/08/18 17:50 Received LACTATE, PLASMA [CHEM] Lab 08/08/18 21:45 Uncollected LACTATE, PLASMA [CHEM] Lab 08/09/18 00:45 Uncollected PROTIME WITH INR [COAG] Stat Lab 08/08/18 17:50 Completed PTT [COAG] Stat Lab 08/08/18 17:50 Completed TROPONIN T Stat Lab 08/08/18 17:50 Received URINALYSIS W/POSS RFLX CULT [URINALYSIS] Stat Lab 08/08/18 18:31 Uncollected 0.9% Sodium Chloride Inj [Ns] 1,000 ml Med 08/08/18 18:45 Active IV 999 mls/hr 0.9% Sodium Chloride Inj [Ns] 1,000 ml Med 08/08/18 18:45 Active IV 999 mls/hr Insulin Human Regular [Humulin R] Med 08/08/18 18:44 Discontinued 10 unit SUBQ NOW ONE Oxygen Device Stat Oth 08/08/18 18:31 Active A/P: DKA. started DKA protocol. Dr quinonez notified of ICU admission. vitals stable. Result Diagrams: 08/08/18 17:50 08/08/18 17:50 - REASSESSMENT Reassessment #1 Time Reassessed: 18:00 Status: unchanged Reassessment #2 Time Reassessed: 19:00 Status: improving Reassessment #3 Time Reassessed: 20:00 Status: improving - XRAY 1 XRAY: Bilateral XRAY Study: Chest (EXAM: CHEST-1 VIEW HISTORY: sepsis TECHNIQUE: Portable chest single view COMPARISON: 11/23/2016 FINDINGS: The lungs are well expanded. The heart is not enlarged. The vessels are not distended. There are no infiltrates. No effusion identified. IMPRESSION: No pneumonia Electronically signed by Jordan Juarez 08/08/2018 7:14 PM) Impression: Normal Comparison with other Films: no changes Departure - Departure Date of Disposition Decision: 08/08/18 Time of Disposition Decision: 20:44 DIAGNOSIS: DKA (diabetic ketoacidoses) Disposition: ADMITTED INPATIENT 09 Certified Medical Emergency: Emergent Condition: Critical Additional Freetext Instructions: ED Follow Up Instructions: You have been treated by a care provider in the Emergency Department. These instructions are being provided to you so you can have an understanding of how to care for yourself upon discharge. Upon discharge from the Emergency Depar tment, you are responsible for making arrangements for follow-up care by a physician of your choice. Take all prescribed medications as directed. Return to the Emergency Department immediately for any new or worsening symptoms. You may call the Physician Referral phone number at [phone] to obtain a list of Physicians who are taking new patients. Referrals and Follow-Ups: Jay Martinez MD [Primary Care Provider] - - Critical Care Note This patient required my direct & personal management of CC.: Yes Total Time (mins): 68 Critical Care Statement: This patient required my direct personal management to treat or rule out processes, the absence of which, could potentiallly result in sudden, clinically significant life or limb threatening deterioration. Attestation - Physician/ MEGHNA Attestation Patient care was provided by Advanced Practice Provider:: No The physician spent face to face time with patient:: Yes Advanced Practice Provider documentation review:: Supervising physician onsite and consulted in the evaluation and care of this patient. The physician did have a face to face encounter with the patient. This chart was documented by the indicated scribe, (Lilia Khan Scribe) and accurately reflects the services I performed and decisions made by me, Lopez Leigh MD, as attested by the provider's signature.
[2018-08-09] MEDS: 1/2 NS 1,000 ML IV SCH (03:45)
[2018-08-09] MEDS ORDERED: D50W SYRINGE IV ONE (04:09)
[2018-08-09 05:34] LABS: ALLEN TEST YES; BE -5.7 mmoll (-3.0-3.0); BLOOD TYPE ARTERIAL; HCO3-(ACT) 20.3 mmoll (20.0-26.0); METHB 0.7 % (0.0-1.5); O2HB 91.4 % (95.0-99.0); PCO2(98.6) 32 mmHg (35-45); PO2(98.6) 55 mmHg (60-100); SAMPLE BLOOD; SAO2 94.1 % (95.0-100.0); pH(98.6) 7.37 (7.35-7.45)
[2018-08-09 05:35] LABS: MODALITY ROOM AIR
[2018-08-09] MEDS: HUMULIN R SUBQ SCH ×2 (06:59→11:00)
[2018-08-09 08:09] LABS: BASO# 0.02 X1000 (0.0-0.2); BASO% 0.1 % (0.0-0.8); EOS# 0.01 X1000 (0.0-0.7); EOS% 0.1 % (0.0-10.0); HEMATOCRIT 39.9 % (37.0-47.0); IMM GRAN# 0.05 X1000 (0.0-0.04); IMM GRAN% 0.3 % (0.0-0.5); LYMPH# 2.42 X1000 (1.2-3.4); LYMPH% 12.3 % (20.5-51.1); MCHC 35.1 g/dL (33-37); MCV 88.5 FL (81-99); MONO# 1.37 X1000 (0.11-0.59); MPV 9.9 FL (7.4-10.4); NEUT# 15.77 X1000 (1.4-6.5); NEUT% 80.2 % (42.2-75.2); PLT 306 X1000 (130-400); RBC 4.51 XMIL (4.2-5.4); RDW 11.7 % (11.5-14.5); WBC 19.64 X1000 (4.8-10.8)
[2018-08-09 08:55] LABS: ALB/GLOB RATIO 1.6; ALBUMIN 4.2 g/dL (3.5-5.0); CALCIUM 9.1 mg/dL (8.8-10.2); CALCIUM 9.2 mg/dL (8.8-10.2); CREATININE 1.1 mg/dL (0.5-0.9); MAGNESIUM 1.8 mg/dL (1.5-2.7); PHOSPHORUS 1.5 mg/dL (2.7-4.5); POTASSIUM 4.2 mmol/L (3.5-5.1); POTASSIUM 4.3 mmol/L (3.5-5.1); TOTAL BILIRUBIN 0.25 mg/dL (0.20-1.00); TOTAL PROTEIN 6.8 g/dL (6.3-8.3)
[2018-08-09] MEDS: TYLENOL PO PRN (10:25)
[2018-08-09] MEDS: ZOFRAN IV PRN ×2 (10:55→21:20)
[2018-08-09] MEDS ORDERED: NS 1,000 ML IV SCH (11:00)
[2018-08-09] MEDS: D5 NS 1,000 ML IV SCH ×2 (11:16→21:21)
[2018-08-09] MEDS ORDERED: MORPHINE IV ONE (11:43)
[2018-08-09] MEDS ORDERED: HUMULIN R IV ONE (11:53)
[2018-08-09 13:26] LABS: CALCIUM 8.9 mg/dL (8.8-10.2); MAGNESIUM 1.9 mg/dL (1.5-2.7); PHOSPHORUS 1.4 mg/dL (2.7-4.5)
[2018-08-09] MEDS ORDERED: HUMULIN R 100 UNIT in NS 100 ML IV SCH (15:00)
[2018-08-09 16:02] LABS: ALLEN TEST YES; BE -5.7 mmoll (-3.0-3.0); BLOOD TYPE ARTERIAL; HCO3-(ACT) 20.4 mmoll (20.0-26.0); METHB 0.9 % (0.0-1.5); O2(CT) 18.6 mL/dL (15.0-23.0); O2HB 93.3 % (95.0-99.0); PCO2(98.6) 32 mmHg (35-45); PO2(98.6) 65 mmHg (60-100); SAMPLE BLOOD; SAO2 95.7 % (95.0-100.0); THB 14.2 g/dL (11.5-17.4); pH(98.6) 7.37 (7.35-7.45)
[2018-08-09 16:03] LABS: MODALITY ROOM AIR
[2018-08-09 16:36] LABS: BASO# 0.01 X1000 (0.0-0.2); EOS# 0.03 X1000 (0.0-0.7); EOS% 0.1 % (0.0-10.0); HEMATOCRIT 40.5 % (37.0-47.0); HEMOGLOBIN 14.1 g/dL (12.0-16.0); IMM GRAN# 0.06 X1000 (0.0-0.04); IMM GRAN% 0.3 % (0.0-0.5); LYMPH# 2.66 X1000 (1.2-3.4); LYMPH% 13.3 % (20.5-51.1); MCH 31.1 PG (27-31); MCHC 34.8 g/dL (33-37); MCV 89.2 FL (81-99); MONO# 1.33 X1000 (0.11-0.59); MONO% 6.6 % (1.7-9.3); MPV 10.1 FL (7.4-10.4); NEUT# 15.94 X1000 (1.4-6.5); NEUT% 79.7 % (42.2-75.2); PLT 268 X1000 (130-400); RBC 4.54 XMIL (4.2-5.4); WBC 20.03 X1000 (4.8-10.8)
--- NOTE | 2018-08-09 16:40 | PROGRESS NOTE ---
DATE: 08/09/2018 SUBJECTIVE: The patient is a DKA patient admitted last night. Unfortunately the protocol was not completely followed as far as the labs. She has been on an insulin drip and her sugars have come down nicely from 719 to 176. Her last bicarb was 16, her gap was 19. OBJECTIVE: Blood pressure is 143/65, heart rate was 57, respiratory rate 18, temperature 98.5 degrees, 96% on room air.Cardiovascular: Regular rate and rhythm. Pulmonary: Bilateral breath sounds. Clear to auscultation. GI: Was soft, nontender, nondistended. Bowel sounds are positive. Extremities: No clubbing or cyanosis. Lymphatic: No peripheral edema. Neurological: Nonfocal. LABORATORY DATA: Her sugars are down in the 170s. PROBLEMS: 1. Diabetic ketoacidosis, nearly resolved. Will probably get her off the insulin drip shortly. 2. Leukocytosis which may just be related to the diabetic ketoacidosis. She does not clearly have a source of infection. Her chest x-ray was clear. Her significant other is very concerned about colitis. She had not had a CT in long time, I do not see any evidence of infection. Her urine is not consistent with infection done yesterday and blood cultures everything like that is negative, in any case patient is stabilized. 3. Hypophosphatemia. Will supplement and follow. DISPOSITION: Pending her clinical status. cc: Dennys Smith MD
[2018-08-09 16:51] LABS: ALBUMIN 4.2 g/dL (3.5-5.0); CALCIUM 9.1 mg/dL (8.8-10.2); CREATININE 1.1 mg/dL (0.5-0.9); PHOSPHORUS 1.3 mg/dL (2.7-4.5); POTASSIUM 3.9 mmol/L (3.5-5.1)
[2018-08-09 17:02] LABS: LYMPHS 14 % (21-51); MONO 6 % (1-9); SEGS 80 % (42-75)
[2018-08-09] MEDS ORDERED: SODIUM PHOSPHATE 40 MEQ in NS 250 ML IV ONE (17:13)
[2018-08-09 17:21] LABS: CK INDEX 2.8 (0.0-2.5); CK-MB 5.26 ng/mL (0.0-5.0)
[2018-08-09 20:47] LABS: CALCIUM 8.6 mg/dL (8.8-10.2); MAGNESIUM 1.8 mg/dL (1.5-2.7); PHOSPHORUS 2.2 mg/dL (2.7-4.5); POTASSIUM 3.3 mmol/L (3.5-5.1)
[2018-08-09] MEDS: ZOLOFT PO SCH (21:20)
[2018-08-09] MEDS: MACROBID PO SCH (21:21)
[2018-08-09] MEDS: NEURONTIN PO SCH (21:21)
[2018-08-09 21:27] LABS: ALLEN TEST YES; BLOOD TYPE ARTERIAL; HCO3-(ACT) 21.7 mmoll (20.0-26.0); O2(CT) 18.7 mL/dL (15.0-23.0); O2HB 92.7 % (95.0-99.0); PCO2(98.6) 32 mmHg (35-45); PO2(98.6) 60 mmHg (60-100); SAMPLE BLOOD; SAO2 95.1 % (95.0-100.0); THB 14.4 g/dL (11.5-17.4)
[2018-08-09 21:28] LABS: MODALITY ROOM AIR
[2018-08-09] MEDS ORDERED: KLOR-CON PO ONE (21:37)
[2018-08-09] MEDS: ATIVAN PO SCH (22:00)
[2018-08-10] MEDS: HUMULIN R 100 UNIT in NS 99 ML IV SCH (00:22)
[2018-08-10 02:07] LABS: MAGNESIUM 1.7 mg/dL (1.5-2.7); PHOSPHORUS 2.4 mg/dL (2.7-4.5)
[2018-08-10 02:19] LABS: AGAP 9; BUN 13 mg/dL (8-22); CALCIUM 8.6 mg/dL (8.8-10.2); CHLORIDE 106 mmol/L (98-107); COSMO 284; CREATININE 0.9 mg/dL (0.5-0.9); ESTIMATED GFR > 60; GLUCOSE 181 mg/dL (70-104); POTASSIUM 3.8 mmol/L (3.5-5.1); SODIUM 140 mmol/L (136-145); TCO2 25 mmol/L (25-35)
[2018-08-10] MEDS ORDERED: KLOR-CON PO ONE ×2 (02:21→06:19)
[2018-08-10 05:39] LABS: MAGNESIUM 2.3 mg/dL (1.5-2.7); PHOSPHORUS 2.2 mg/dL (2.7-4.5)
[2018-08-10 06:11] LABS: AGAP 12; BUN 11 mg/dL (8-22); CALCIUM 8.6 mg/dL (8.8-10.2); CHLORIDE 109 mmol/L (98-107); COSMO 277; CREATININE 0.8 mg/dL (0.5-0.9); ESTIMATED GFR > 60; GLUCOSE 70 mg/dL (70-104); POTASSIUM 3.5 mmol/L (3.5-5.1); SODIUM 140 mmol/L (136-145); TCO2 19 mmol/L (25-35)
[2018-08-10] MEDS: D5 NS 1,000 ML IV SCH ×2 (06:43→17:13)
[2018-08-10] MEDS: MACROBID PO SCH ×2 (09:05→20:44)
[2018-08-10] MEDS: NEURONTIN PO SCH ×2 (09:05→20:44)
[2018-08-10] MEDS: SYNTHROID PO SCH (09:05)
[2018-08-10] MEDS: SEROQUEL PO SCH (09:05)
[2018-08-10] MEDS: PRILOSEC PO SCH (09:05)
[2018-08-10 09:53] LABS: AGAP 22; BUN 11 mg/dL (8-22); CALCIUM 7.8 mg/dL (8.8-10.2); CHLORIDE 98 mmol/L (98-107); COSMO 277; CREATININE 0.9 mg/dL (0.5-0.9); ESTIMATED GFR > 60; GLUCOSE 331 mg/dL (70-104); POTASSIUM 4.4 mmol/L (3.5-5.1); SODIUM 132 mmol/L (136-145); TCO2 12 mmol/L (25-35)
[2018-08-10 10:01] LABS: MAGNESIUM 2.1 mg/dL (1.5-2.7); PHOSPHORUS 2.1 mg/dL (2.7-4.5)
[2018-08-10 13:03] LABS: PHOSPHORUS 1.3 mg/dL (2.7-4.5)
[2018-08-10 13:05] LABS: AGAP 12; BUN 9 mg/dL (8-22); CHLORIDE 102 mmol/L (98-107); COSMO 271; CREATININE 0.8 mg/dL (0.5-0.9); ESTIMATED GFR > 60; GLUCOSE 234 mg/dL (70-104); POTASSIUM 3.8 mmol/L (3.5-5.1); SODIUM 132 mmol/L (136-145); TCO2 18 mmol/L (25-35)
[2018-08-10] MEDS ORDERED: ATIVAN PO ONE (14:10)
--- NOTE | 2018-08-10 14:48 | PROGRESS NOTE ---
DATE: 08/10/2018 SUBJECTIVE: The patient states she is feeling somewhat better today. She has had less nausea. Her headache is gone. She is taking sips of clear liquids. OBJECTIVE: Vital signs: Blood pressure is 155/87 with heart rate of 72, respirations are 18, temperature is 98.2 oral with room air saturations 95% to 98%. Eyes: Pupils are equal, round, and reactive to light. EOMs are intact. Sclerae anicteric. HEENT: Head is normocephalic, atraumatic. Mucous membranes are moist. Neck: Supple with trachea midline. Cardiovascular: Regular rate and rhythm, S1 and S2 appreciated. She has no lower extremity edema with peripheral pulses palpable x4 extremities. Pulmonary: Breath sounds are clear with no increased work of breathing noted. Chest rises and falls symmetric with respirations. Gastrointestinal: Abdomen is soft, nontender, nondistended, with bowel sounds in all 4 quadrants. Neurologic: She is alert and oriented x3. Skin: Warm and dry. LABS: Sodium is 132, potassium 3.8, BUN 9, creatinine 0.8, with glucose of 234. CO2 is 18 and anion gap is 12. ASSESSMENT AND PLAN: 1. Diabetic ketoacidosis. The patient has closed the gap. Her CO2 is increasing. We will continue per protocol. Will start clear liquids and advance as tolerated. 2. Leukocytosis. Blood cultures are negative. She has been afebrile and she has had no complaints. Will continue to monitor and trend labs. 3. Hypophosphatemia. Will trend labs and will replete. 4. Electrolytes. Will trend and replete as is appropriate. 5. Bipolar disorder. Aware. 6. Hypertension. Aware. Dictated by PILY Cervantes for Rigoberto Fregoso MD This chart was documented by, PILY Cervantes and accurately reflects the services performed, treatment plan and medical decisions as attested by the providers signature Rigoberto Fregoso MD. cc: PILY Cervantes MD
[2018-08-10 17:06] LABS: AGAP 11; BUN 8 mg/dL (8-22); CALCIUM 8.1 mg/dL (8.8-10.2); CHLORIDE 109 mmol/L (98-107); COSMO 277; CREATININE 0.8 mg/dL (0.5-0.9); ESTIMATED GFR > 60; GLUCOSE 156 mg/dL (70-104); POTASSIUM 3.4 mmol/L (3.5-5.1); SODIUM 138 mmol/L (136-145); TCO2 18 mmol/L (25-35)
[2018-08-10 17:08] LABS: MAGNESIUM 1.9 mg/dL (1.5-2.7); PHOSPHORUS 1.6 mg/dL (2.7-4.5)
[2018-08-10 20:33] LABS: MAGNESIUM 1.8 mg/dL (1.5-2.7); PHOSPHORUS 1.6 mg/dL (2.7-4.5)
[2018-08-10 20:40] LABS: AGAP 12; BUN 8 mg/dL (8-22); CALCIUM 8.2 mg/dL (8.8-10.2); CHLORIDE 111 mmol/L (98-107); COSMO 282; CREATININE 0.7 mg/dL (0.5-0.9); ESTIMATED GFR > 60; GLUCOSE 211 mg/dL (70-104); SODIUM 139 mmol/L (136-145); TCO2 16 mmol/L (25-35)
[2018-08-10] MEDS: ATIVAN PO SCH (20:44)
[2018-08-10] MEDS: ZOLOFT PO SCH (20:44)
[2018-08-10] MEDS: HUMALOG SUBQ SCH (20:45)
[2018-08-10] MEDS: TYLENOL PO PRN (20:54)
--- NOTE | 2018-08-11 00:07 | PROGRESS NOTE ---
DATE: 08/10/2018 SUBJECTIVE: The patient notes that she is feeling better. Denies any fevers or chills. She states she is starting to tolerate liquids. OBJECTIVE: Vital Signs: She is afebrile. Vital signs reviewed and stable. Blood pressure is mildly elevated, heart rate in 60s, respiratory rate 20. General: The patient is pleasant to talk with, she is in no current respiratory distress. HEENT: Normocephalic. Neck: Supple. Cardiovascular: Regular rate. Chest: Clear. Abdomen: Soft. Extremities: Moves all extremities. ASSESSMENT: 1. Diabetic ketoacidosis. 2. Leukocytosis likely secondary to her diabetic ketoacidosis. She does not have a clear indication of infection. 3. Hypophosphatemia. PLAN: We will continue the patient in the hospital. Hopefully she can wean off insulin soon and transition back to her normal home medications. We will continue to advance diet as possible. Further orders as needed. cc: Rigoberto Fregoso MD
[2018-08-11] MEDS: TYLENOL PO PRN ×2 (02:38→23:27)
[2018-08-11] MEDS: D5 NS 1,000 ML IV SCH (02:45)
[2018-08-11] MEDS: HUMALOG SUBQ SCH ×6 (04:12→21:15)
[2018-08-11 05:52] LABS: BASO# 0.02 X1000 (0.0-0.2); BASO% 0.2 % (0.0-0.8); HEMATOCRIT 35.7 % (37.0-47.0); HEMOGLOBIN 12.3 g/dL (12.0-16.0); IMM GRAN# 0.03 X1000 (0.0-0.04); IMM GRAN% 0.3 % (0.0-0.5); LYMPH# 3.73 X1000 (1.2-3.4); LYMPH% 37.8 % (20.5-51.1); MCH 31.5 PG (27-31); MCHC 34.5 g/dL (33-37); MCV 91.3 FL (81-99); MONO# 0.68 X1000 (0.11-0.59); MONO% 6.9 % (1.7-9.3); MPV 10.4 FL (7.4-10.4); NEUT# 5.31 X1000 (1.4-6.5); NEUT% 53.8 % (42.2-75.2); PLT 215 X1000 (130-400); RBC 3.91 XMIL (4.2-5.4); RDW 12.5 % (11.5-14.5); WBC 9.87 X1000 (4.8-10.8)
[2018-08-11 06:16] LABS: AGAP 20; ALBUMIN 3.1 g/dL (3.5-5.0); BUN 7 mg/dL (8-22); CALCIUM 7.9 mg/dL (8.8-10.2); CHLORIDE 103 mmol/L (98-107); COSMO 281; CREATININE 0.8 mg/dL (0.5-0.9); ESTIMATED GFR > 60; GLUCOSE 331 mg/dL (70-104); MAGNESIUM 1.7 mg/dL (1.5-2.7); POTASSIUM 3.4 mmol/L (3.5-5.1); SODIUM 135 mmol/L (136-145); TCO2 12 mmol/L (25-35)
[2018-08-11] MEDS: SYNTHROID PO SCH (09:43)
[2018-08-11] MEDS: MACROBID PO SCH ×2 (09:43→21:14)
[2018-08-11] MEDS: NEURONTIN PO SCH ×2 (09:43→21:14)
[2018-08-11] MEDS: SEROQUEL PO SCH (09:43)
[2018-08-11] MEDS: PRILOSEC PO SCH (09:43)
[2018-08-11] MEDS ORDERED: D5 NS 1,000 ML IV SCH (10:32)
[2018-08-11] MEDS ORDERED: ATIVAN PO ONE (11:11)
--- NOTE | 2018-08-11 11:47 | PROGRESS NOTE ---
DATE: 08/11/2018 INTERVAL HISTORY: No acute events. The patient states she wants me to advance her diet. She was nauseous and had vomited yesterday. She had a bowel movement today. She currently denies any nausea, vomiting, or abdominal pain. She also tells me that she takes lorazepam 1 mg p.o. 4 times a day, and she wants me to address that considering she is very anxious at the moment. We discussed about asking for help about coming out of bed with some help. I also discussed with her about physical therapy evaluation. The patient's is at bedside, plan of care discussed with her. PHYSICAL EXAMINATION: Vital signs: Temperature 98.3 degrees, pulse 77, respiratory rate 18, blood pressure 127/72, saturating 96% on room air. General: Does not appear in any acute distress. HEENT: Oral cavity is moist. Lungs: Air entry bilaterally equal. No wheeze, rhonchi, crackles. Cardiovascular: S1, S2 normal. No murmur, rub, or gallop. Not tachycardic. Abdomen: Soft, nontender. Extremities: No lower extremity edema. LABORATORY DATA: Suggestive of resolution of leukocytosis. Otherwise normal hemoglobin and normal platelet count. Her BMP is suggestive of elevated anion gap and low bicarbonate, hyponatremia, hypokalemia, fluctuating level of blood sugars with mostly hyperglycemia. She does have hypophosphatemia. MICROBIOLOGY: No data. IMAGING: No new data. ASSESSMENT AND PLAN: 1. Diabetic ketoacidosis with history of insulin-dependent type 2 diabetes mellitus. Continue fingerstick blood sugar check and sliding scale insulin with meals and at nighttime. Continue intravenous dextrose, normal saline at lower rate and adjust the dose according to her response. Follow up with ABG, lactate and repeat BMP today considering her elevated anion gap and low bicarbonate to rule out recurrence of her diabetic ketoacidosis. I will also get urine for ketonuria assessment. 2. Electrolyte abnormalities including hyponatremia, hypokalemia, hypophosphatemia, low bicarbonate. Continue D5 normal saline and replete potassium and phosphate and follow up with repeat BMP. Her acute kidney injury due to profound volume depletion at the time of admission has resolved. 3. History of bipolar mood disorder with anxiety. Increase her Ativan dose. Continue home sertraline and quetiapine. DISPOSITION: The patient remains inside [facility] for close monitoring of her blood sugars. Plan of care discussed with the patient and at bedside. All of their questions have been answered. I will order physical therapy and later on in the future, the patient might become a candidate for home PT depending on her course. cc: Sam Hernandez MD
[2018-08-11 11:49] LABS: ALLEN TEST NO; BE -5.7 mmoll (-3.0-3.0); BLOOD TYPE ARTERIAL; HCO3-(ACT) 20.4 mmoll (20.0-26.0); METHB 0.7 % (0.0-1.5); O2(CT) 15.3 mL/dL (15.0-23.0); O2HB 93.9 % (95.0-99.0); PCO2(98.6) 29 mmHg (35-45); PO2(98.6) 63 mmHg (60-100); SAMPLE BLOOD; SAO2 96.3 % (95.0-100.0); THB 11.6 g/dL (11.5-17.4)
[2018-08-11 11:50] LABS: MODALITY ROOM AIR
[2018-08-11] MEDS: K-PHOS PO SCH ×3 (11:51→21:16)
[2018-08-11] MEDS: KLOR-CON PO SCH ×2 (11:52→15:59)
[2018-08-11] MEDS: ATIVAN PO SCH (11:53)
[2018-08-11 12:39] LABS: AGAP 13; BUN 6 mg/dL (8-22); CHLORIDE 109 mmol/L (98-107); COSMO 278; CREATININE 0.5 mg/dL (0.5-0.9); ESTIMATED GFR > 60; GLUCOSE 156 mg/dL (70-104); POTASSIUM 3.5 mmol/L (3.5-5.1); SODIUM 139 mmol/L (136-145); TCO2 17 mmol/L (25-35)
[2018-08-11] MEDS ORDERED: BASAGLAR SUBQ SCH (18:00)
[2018-08-11 20:25] LABS: URINE SOURCE CLEAN CATCH
[2018-08-11 20:39] LABS: BILIRUBIN URINE NEGATIVE (NEGATIVE); BLOOD URINE NEGATIVE (NEGATIVE); COLOR STRAW; GLUCOSE URINE 500 mg/dL (NEGATIVE); KETONE URINE NEGATIVE (NEGATIVE); LEUKOCYTES URINE MODERATE (NEGATIVE); NITRITE URINE NEGATIVE (NEGATIVE); PH URINE 6.5; PROTEIN URINE NEGATIVE (NEGATIVE); SP GRAVITY URINE < 1.001; TURBIDITY URINE CLEAR (CLEAR); UR EPITHELIAL CELLS <10 /HPF (<10); URINE BACTERIA NEGATIVE /HPF; URINE RBC <10 /HPF (<10); URINE WBC <10 /HPF (<10); UROBILINOGEN URINE NORMAL (NORMAL)
[2018-08-11] MEDS ORDERED: ATIVAN PO SCH (21:00)
[2018-08-11] MEDS: ZOLOFT PO SCH (21:14)
[2018-08-12 05:24] LABS: BASO# 0.04 X1000 (0.0-0.2); BASO% 0.5 % (0.0-0.8); EOS# 0.19 X1000 (0.0-0.7); EOS% 2.3 % (0.0-10.0); HEMATOCRIT 34.9 % (37.0-47.0); HEMOGLOBIN 11.9 g/dL (12.0-16.0); LYMPH# 3.68 X1000 (1.2-3.4); LYMPH% 44.2 % (20.5-51.1); MCH 31.5 PG (27-31); MCHC 34.1 g/dL (33-37); MCV 92.3 FL (81-99); MONO# 0.46 X1000 (0.11-0.59); MONO% 5.5 % (1.7-9.3); MPV 10.3 FL (7.4-10.4); NEUT# 3.96 X1000 (1.4-6.5); NEUT% 47.5 % (42.2-75.2); PLT 201 X1000 (130-400); RBC 3.78 XMIL (4.2-5.4); RDW 12.8 % (11.5-14.5); WBC 8.33 X1000 (4.8-10.8)
[2018-08-12] MEDS: HUMALOG SUBQ SCH ×2 (06:08→11:00)
[2018-08-12 06:18] LABS: AGAP 10; ALBUMIN 3.4 g/dL (3.5-5.0); BUN 7 mg/dL (8-22); CALCIUM 8.3 mg/dL (8.8-10.2); CHLORIDE 109 mmol/L (98-107); COSMO 277; CREATININE 0.8 mg/dL (0.5-0.9); ESTIMATED GFR > 60; GLUCOSE 166 mg/dL (70-104); PHOSPHORUS 2.2 mg/dL (2.7-4.5); POTASSIUM 4.4 mmol/L (3.5-5.1); SODIUM 138 mmol/L (136-145); TCO2 19 mmol/L (25-35)
[2018-08-12] MEDS: K-PHOS PO SCH (09:17)
[2018-08-12] MEDS: NEURONTIN PO SCH (09:17)
[2018-08-12] MEDS: MACROBID PO SCH (09:17)
[2018-08-12] MEDS: SEROQUEL PO SCH (09:17)
[2018-08-12] MEDS: PRILOSEC PO SCH (09:17)
[2018-08-12] MEDS: SYNTHROID PO SCH (09:17)
[2018-08-12] MEDS: ATIVAN PO SCH (11:01)
[2018-08-12 11:46] VITALS: BP 135/81
--- NOTE | 2018-08-13 08:21 | DISCHARGE SUMMARY ---
ADMISSION DATE: 08/08/2018 DISCHARGE DATE: 08/12/2018 DISCHARGE DIAGNOSES: 1. Diabetic ketoacidosis. 2. Hypoglycemia requiring intravenous dextrose. 3. Hyponatremia, hypokalemia, hypophosphatemia, low bicarbonate. 4. Anxiety. 5. Leukocytosis in the setting of diabetic ketoacidosis. OTHER DIAGNOSES: 1. Past history of insulin-dependent type 2 diabetes. 2. Past history of ulcerative colitis, not in any flare. 3. Past history of chronic gastroesophageal reflux disease. 4. Past history of hypothyroidism. 5. Past history of bipolar mood disorder. 6. Past history of tobacco abuse. CONSULTATIONS DURING HOSPITALIZATION: None. DISCHARGE MEDICATIONS: Lorazepam 1 mg at nighttime, amphetamine 20 mg b.i.d., gabapentin 300 mg b.i.d., insulin lispro/Humalog mix 50/50 KwikPen 3 units with meals, insulin glargine 12 units in the morning time subcutaneously, sitagliptin metformin, Janumet 50 at 1000 mg tablets 1 tablet b.i.d., omeprazole 40 mg daily, Quetiapine 200 mg daily, levothyroxine 300 mcg daily, Sertraline 200 mg at nighttime, Macrobid 100 mg b.i.d. which was her home medication, ondansetron 8 mg every 8 hours as needed for nausea and vomiting. VITALS: At the time of discharge, temperature 98.2 degrees, pulse 71, respiratory rate 16, blood pressure 130/71, saturating 100% on room air. PHYSICAL EXAMINATION: General: The patient does not appear in any acute distress. Mouth: Oral cavity is moist. Lungs: Air entry bilaterally equal. No wheeze, rhonchi, crackles. Heart: S1, S2 normal. No murmur or gallop. Abdomen: Soft, nontender. Extremities: No lower extremity edema. She was able to walk in the hallway with minimal assistance with physical therapy. SIGNIFICANT LABS: During hospital admission, her WBC count was 20,000 on admission which had resolved to 8000 at the time of discharge. Her hemoglobin was 11.9 and platelet was 201 at the time of discharge. Her blood gas on admission had a pH of 7.13, pCO2 of 20, bicarbonate of 8 on room air. At the time of discharge, her sodium was 138, potassium of 4.4, chloride of 109, bicarbonate of 19. Blood glucose of 184, phosphorus of 2.2, and she had received an additional dose of potassium phosphate. A slip for getting outpatient BMP was provided. MICROBIOLOGY: On hospital admission, blood culture no growth to date. IMAGING: During hospital admission, chest x-ray on admission did not have any acute cardiopulmonary process. HOSPITAL COURSE SUMMARY: Ms. Huizar is a 52-year-old lady with above-mentioned past medical history, came to the emergency room with complaints of several days of nausea, vomiting, abdominal discomfort. As per the history provided by the , patient had missed her insulin doses and was taking her oral tablets half of a dose only 1 time a day instead of full dose twice a day. In the emergency room, she was found to have an increased anion gap metabolic acidosis in the setting of diabetic ketoacidosis. She was admitted to [facility] and was started on insulin drip, following which her diabetic ketoacidosis had resolved. During hospital admission, she also started developing low blood sugar with hypoglycemia and blood sugar as low as 89, and she was also symptomatic of it, for which she was started back on dextrose intravenous drip. Her insulin drip was changed to long-acting insulin with subcutaneous short- acting insulin. Later on, her p.o. intake had become consistent and dextrose drip was discontinued, and her blood sugars were in acceptable range. The patient was deemed appropriate for discharge. At the time of discharge, the patient was advised about keeping a blood sugar log, continuing long- acting insulin with her oral hypoglycemic agent with short-acting insulin, and follow up with the regular doctor. Get a repeat BMP done as an outpatient. The patient's is at the bedside, and all of his questions were answered satisfactorily. TIME SPENT: More than 30 minutes of time was taken in taking care of and discharging this patient. cc: Sam Hernandez MD
== END 2018-08-12 13:08 | disposition home or self-care (01) | DRG 638 ==
LOC: ED 16:51 → EDIPHOLD 16:52 → SUATTDRO 16:52 → 3S 08-09 14:26
PROVIDERS: ATTEND Internal Medicine
CPT/HCPCS: 71010; 71045; 80048; 80053; 80069; 81001; 82009; 82550; 82553; 82805; 82948; 83605; 83735; 84100; 84484; 85025; 85610; 85730; 87040; 96361; 96365; 96375; 97116; 97162; 97530; 99285; 99291; A9270; J0696; J1815; J2270; J2405; J3475; J7030; J7042; J7050; XXXXX